=== PATIENT | female | born 1965 | race Caucasian/White ===

== ENCOUNTER → 2020-06-26 13:11 | Outpatient (CLI) | payer OTHER, SELFPAY ==
--- NOTE | ~2020-06-26 | XR_ITS ---
EXAMINATION: XR ankle RT 2V EXAM DATE: 06/26/2020 14:18 INDICATION: No known recent injury provided at this time. Pain of the right ankle. TECHNIQUE: Frontal and lateral projections of the right ankle. There is no prior study for comparis on. FINDINGS: The ankle mortise appears intact. Right calcaneus has tiny posterior and inferior spurs. N o evidence of talar osteochondral defect. There are no acute fractures or dislocations identified. T here is no subcutaneous gas. The soft tissue is unremarkable. There are no radiopaque foreign bodi es. IMPRESSION: Tiny right calcaneal spurs. Reviewed, dictated and finalized at location A. IMPRESSION: Tiny right calcaneal spurs.
--- NOTE | ~2020-06-26 | XR_ITS ---
EXAMINATION: XR foot RT 2V EXAM DATE: 06/26/2020 14:18 INDICATION: No known recent injury provided at this time. Pain of the left foot. TECHNIQUE: Frontal and lateral projections of the right foot. There is no prior study for compariso n. FINDINGS: There is mild right 1st metatarsophalangeal joint primary osteoarthritis. Small inferior an d posterior calcaneal spurs. There are no acute fractures or dislocations identified. There is no clifford bcutaneous gas. The soft tissue is unremarkable. There are no radiopaque foreign bodies. IMPRESSION: 1. 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 2. Small calcaneal spurs. Reviewed, dictated and finalized at location A.
--- NOTE | ~2020-06-26 | XR_ITS ---
EXAMINATION: XR wrist RT 2V EXAM DATE: 06/26/2020 14:18 INDICATION: No known recent injury provided at this time. Pain of the right wrist. Polyarthralgia. TECHNIQUE: Frontal and lateral projections of the right wrist. There is no prior study for comparis on. FINDINGS: There are no bony erosions identified. The joint spaces are uniform. There are no acute fr actures or dislocations identified. There is no subcutaneous gas. The soft tissue is unremarkable. There are no radiopaque foreign bodies. IMPRESSION: 1. Unremarkable XR wrist RT 2V exam. Reviewed, dictated and finalized at location A.
--- NOTE | ~2020-06-26 | XR_ITS ---
EXAMINATION: XR foot LT 2V EXAM DATE: 06/26/2020 14:18 INDICATION: No known recent injury provided at this time. Pain of the left foot. TECHNIQUE: Frontal and lateral projections of the left foot. There is no prior study for comparison . FINDINGS: Left calcaneal small spurs posteriorly and inferiorly. There are no acute fractures or dis locations identified. There is no subcutaneous gas. The soft tissue is unremarkable. There are no radiopaque foreign bodies. There are no bony erosions identified. IMPRESSION: Small left calcaneal spurs. Reviewed, dictated and finalized at location A. IMPRESSION: Small left calcaneal spurs.
--- NOTE | ~2020-06-26 | XR_ITS ---
EXAMINATION: XR hand LT 2V EXAM DATE: 06/26/2020 14:18 INDICATION: No known recent injury provided at this time. Pain of the left hand. TECHNIQUE: Frontal and lateral projections of the left hand. There is no prior study for comparison . FINDINGS: The joint spaces are uniform. There are no bony erosions identified. There are no acute fractures or dislocations identified. There is no subcutaneous gas. The soft tissue is unremarkabl e. There are no radiopaque foreign bodies. IMPRESSION: 1. Unremarkable XR hand LT 2V exam. Reviewed, dictated and finalized at location A.
--- NOTE | ~2020-06-26 | XR_ITS ---
EXAMINATION: XR wrist LT 2V EXAM DATE: 06/26/2020 14:18 INDICATION: No known recent injury provided at this time. Pain of the left wrist. TECHNIQUE: Frontal and lateral projections of the left wrist. There are no prior studies for compar yair. FINDINGS: The joint spaces are uniform. There are no bony erosions identified. There are no acute fr actures or dislocations identified. There is no subcutaneous gas. The soft tissue is unremarkable. There are no radiopaque foreign bodies. IMPRESSION: 1. Unremarkable XR wrist LT 2V exam. Reviewed, dictated and finalized at location A.
--- NOTE | ~2020-06-26 | XR_ITS ---
EXAMINATION: XR hand RT 2V EXAM DATE: 06/26/2020 14:18 INDICATION: No known recent injury provided at this time. Pain of the right hand. Polyarthralgia. TECHNIQUE: Right hand frontal, lateral and oblique projections obtained and reviewed. Comparison is m heather to prior examination from 02/25/2010. FINDINGS: Right metacarpal bones are unremarkable. The joint spaces are uniform. There are no bony erosions identified. There are no acute fractures or dislocations identified. There is no subcutaneo us gas. The soft tissue is unremarkable. There are no radiopaque foreign bodies. IMPRESSION: 1. Unremarkable XR hand RT 2V exam. Reviewed, dictated and finalized at location A.
--- NOTE | ~2020-06-26 | XR_ITS ---
EXAMINATION: XR ankle LT 2V EXAM DATE: 06/26/2020 14:18 INDICATION: No known recent injury provided at this time. Pain of the left ankle. TECHNIQUE: Frontal and lateral projections of the left ankle. There is no prior study for compariso n. FINDINGS: There are tiny left calcaneal inferior and posterior spurs. The ankle mortise appears inta ct. There are no acute fractures or dislocations identified. There is no subcutaneous gas. The soft tissue is unremarkable. There are no radiopaque foreign bodies. No evidence of talar osteochondra l defect. IMPRESSION: Tiny left calcaneal spurs. Reviewed, dictated and finalized at location A. IMPRESSION: Tiny left calcaneal spurs.
== END ==
PROVIDERS: Visit Provider Internal Medicine Rheumatology
DX: M79.10 Myalgia, unspecified site (principal); R53.81 Other malaise; R53.83 Other fatigue; M77.32 Calcaneal spur, left foot; M77.31 Calcaneal spur, right foot; M19.071 Primary osteoarthritis, right ankle and foot
CPT/HCPCS: 73100; 73120; 73600; 73620

== ENCOUNTER → 2021-09-13 15:46 | Outpatient (CLI) | payer OTHER, SELFPAY ==
--- NOTE | ~2021-09-13 | MR_ITS ---
EXAMINATION: MR brain/brain stem wo con DATE: 09/13/2021 16:19 INDICATION: Personal history of transient ischemic attack. Migraine headache. TECHNIQUE: Magnetic resonance imaging (MRI) of the brain and brainstem was performed without intraven ous contrast. Sequences included sagittal and axial T1-weighted FSE, axial diffusion-weighted FS EPI, axial T2*-weighted GRE, axial T2-weighted FLAIR Propeller, and axial T2-weighted Propeller. Apparent diffusion coefficient (ADC) maps were created. COMPARISON: Brain MRI 01/22/2018 FINDINGS: There are scattered areas of nonspecific increased T2-weighted signal intensity in the cere bral white matter. There is no intracranial hemorrhage, acute infarction, or abnormal intracranial ma ss lesion. The ventricles are normal in size. The orbits are normal. There is mild mucosal thickening in the paranasal sinuses. The mastoid air cells are normal. IMPRESSION: 1. Stable mild nonspecific cerebral white matter disease, which likely represents chronic small vesse l ischemic disease. Reviewed, dictated and finalized at location A. KE COUNSELOR IMPRESSION: 1. Stable mild nonspecific cerebral white matter disease, which likely represen ts chronic small vessel ischemic disease.
== END ==
PROVIDERS: PCP Family Medicine; Visit Provider Family Medicine
DX: Z86.73 Personal history of transient ischemic attack (TIA), and cerebral infarction without residual deficits (principal); R93.0 Abnormal findings on diagnostic imaging of skull and head, not elsewhere classified
CPT/HCPCS: 70551

== ENCOUNTER 2022-03-05 09:08 | Emergency (ER) | payer OTHER, SELFPAY ==
[2022-03-05] VITALS (17 sets, daily range): BP systolic 135–181; BP diastolic 61–101; PULSE 74–103; RESP 10–22; TEMP 36.2; O2SAT 87–100
--- NOTE | ~2022-03-05 | XR_ITS ---
EXAMINATION: XR chest 2V DATE: 03/05/2022 11:15 INDICATION: This of breath and cough TECHNIQUE: PA and lateral views of the chest were obtained. COMPARISON: Chest radiograph dated 01/21/18 FINDINGS: The lungs remain clear with no focal airspace opacities, pulmonary edema, pleural effusion or pneumot horax. The cardiomediastinal silhouette is normal. Mild to moderate thoracic spondylosis. IMPRESSION: 1. No acute cardiopulmonary disease. Reviewed, dictated and finalized at location A.
--- NOTE | 2022-03-05 09:20 | ED.GENADULT ---
HPI - General Adult General Chief complaint: Asthma Stated complaint: Asthma Attack Time Seen by Provider: 03/05/22 09:14 Source: patient Mode of arrival: ambulatory Limitations: no limitations History of Present Illness HPI narrative: 56-year-old female presenting the emergency department for evaluation of worsening shortness of breath since Monday or Monday. Patient does have an underlying history of asthma. Patient states she has been using her albuterol nebulizers without significant improvement. Patient does report shortness of breath but denies any associated chest pain. Patient denies any fevers nausea vomiting or diarrhea. Patient states she did do a home test for COVID a few days ago and it was negative. Patient states she is not currently vaccinated. Patient states she is not a smoker. Related Data Allergies Allergy/AdvReac Type Severity Reaction Status Date / Time sumatriptan Allergy Severe ANAPHYLAXIS, Verified 03/05/22 12:27 Asthma ciprofloxacin Allergy Unknown Other Verified 11/30/21 10:52 levofloxacin Allergy Unknown Unknown Verified 11/30/21 10:52 loratadine Allergy Unknown drowsiness Verified 11/30/21 10:52 Penicillins Allergy Unknown Rash Verified 11/30/21 10:52 Sulfa (Sulfonamide Allergy Unknown Rash Verified 11/30/21 10:52 Antibiotics) Review of Systems Review of Systems: CONSTITUTIONAL: Denies fever, chills, or sweats. EYES: Denies visual changes, redness, or discharge. ENT: Denies rhinorrhea, congestion, sore throat, or otalgia. CARDIOVASCULAR: Denies chest pain, palpitations, or edema. RESPIRATORY: See HPI GASTROINTESTINAL: Denies abdominal pain, nausea, vomiting, or diarrhea. GENITOURINARY: Denies dysuria or hematuria. SKIN: Denies rash or itching. MUSCULOSKELETAL: Denies back pain, joint pain, or myalgia. NEUROLOGIC: Denies headache, numbness, or weakness. [facility] Past Medical History Medical History Chronic fatigue, unspecified Family history of breast cancer Senile lentigo Surgical History Surgical History History of tonsillectomy Hx of LASIK Family History Family History Other Cerebrovascular accident Family history of allergic disorder Family history of cardiovascular disease Family history of malignant neoplasm of breast Family history of pulmonary embolism Hypertension Social History Social History (Updated 11/30/21 @ 10:59 by Rosa Munoz [facility]) Second hand tobacco smoke exposure: No Alcohol intake: current Exam Narrative: APPEARANCE: Well appearing, no pain, no distress, well-nourished. HEAD: normocephalic, atraumatic. EYES: PERRLA/EOMI, conjunctivae clear. NOSE: Normal no drainage EARS:TMS clear with good light reflex. RESPIRATORY: Airway patent. Respiratory wheeze CARDIOVASCULAR: Regular rate and rhythm without murmurs rubs or gallops. ABDOMINAL: Soft, nontender, nondistended, normal bowel sounds MUSCULOSKELETAL: Moves all extremities. Strength/ROM intact, No edema, No calf tenderness. NEURO: Alert. Cranial nerves II through XII intact. Grossly intact SKIN: Warm, dry. Normal Color Course Course Emergency Course: Patient did feel improved with treatment. Patient was after the results of her work-up. X-ray showed no acute cardiopulmonary normality. Vital Signs Vital signs: Vital Signs Temperature 97.2 F L 03/05/22 09:14 Pulse Rate 103 H 03/05/22 09:14 Respiratory Rate 22 H 03/05/22 09:14 Blood Pressure 181/101 H 03/05/22 09:14 Pulse Oximetry 98 03/05/22 09:14 Oxygen Delivery Room Air 03/05/22 09:14 Temperature 97.2 F L 03/05/22 09:14 Pulse Rate 89 03/05/22 12:34 Respiratory Rate 13 03/05/22 12:34 Blood Pressure 151/64 H 03/05/22 11:47 Pulse Oximetry 94 03/05/22 12:00 Oxygen Delivery Room Air 03/05/22 09:14 Medical Decision Making V
[2022-03-05] MEDS: methylPREDNISolone SOD SUCC 125 MG VIAL IV PUSH (09:25)
[2022-03-05] MEDS: ALBUTEROL SULFATE NEB 2.5 MG/3 ML INH 5 MG INHALATION ×2 (09:30→12:26)
[2022-03-05 09:37] LABS: Basophils Absolute Auto 0.1 K/mm3 (0.0-0.1); Basophils Percent Auto 0.8 % (0.2-1.2); Eosinophils Absolute Auto 0.6 K/mm3 (0-0.3); Eosinophils Percent Auto 9.7 % (0-4.4); Hematocrit 42.7 % (37.0-47.0); Hemoglobin 14.4 g/dL (12.0-15.0); Immature Granulocyte Absolute 0.01 K/mm3 (0.00-0.031); Immature Granulocyte Percent A 0.2 % (0-0.5); Lymphocytes Absolute Auto 2.58 K/mm3 (0.9-3.2); Lymphocytes Percent Auto 42.3 % (18.3-44.2); Mean Corpuscular HGB Conc 33.7 g/dl (32-36); Mean Corpuscular Hemoglobin 30.4 pg (26-34); Mean Corpuscular Volume 90.1 fl (80-100); Mean Platelet Volume 11.2 fl (7.4-10.4); Monocytes Absolute Auto 0.4 K/mm3 (0.1-0.6); Monocytes Percent Auto 6.4 % (2.6-8.5); Neutrophils Absolute Auto 2.5 K/mm3 (1.3-6.7); Neutrophils Percent Auto 40.6 % (45.5-73.1); Platelet Count Result 342 k/mm3 (150-375); Red Blood Count 4.74 M/mm3 (4.2-5.4); Red Cell Distribution Width 13.3 % (11.5-14.5); White Blood Count 6.1 K/mm3 (4.5-10.0)
[2022-03-05 09:54] LABS: Alanine Aminotransferase 24 U/L (6-35); Albumin Level 4.4 g/dL (3.5-5.1); Alkaline Phosphatase 83 U/L (38-126); Anion Gap 11 mmol/L (8-16); Aspartate Amino Transferase 39 U/L (14-36); Bilirubin,Total 0.5 mg/dL (0.2-1.3); Blood Urea Nitrogen 12 mg/dL (7-17); Calcium 8.8 mg/dL (8.4-10.2); Carbon Dioxide 22 mmol/L (22-30); Chloride 108 mmol/L (98-107); Estimated CRCL calculation 104 ml/min; Estimated Glomerular Filt Rate > 60; Glucose 102 mg/dL (65-110); Potassium 4.3 mmol/L (3.4-5.0); Sodium 141 mmol/L (137-145)
[2022-03-05 10:38] LABS: SARS-CoV-2 RNA PCR Negative
== END 2022-03-05 12:54 | disposition home or self-care (01) ==
PROVIDERS: Emergency Provider Emergency Medicine; PCP Family Medicine
DX: J45.909 Unspecified asthma, uncomplicated (principal); Z20.822 Contact with and (suspected) exposure to COVID-19; R53.82 Chronic fatigue, unspecified; L81.4 Other melanin hyperpigmentation; Z28.310 Unvaccinated for COVID-19
CPT/HCPCS: 36415; 71046; 80053; 85025; 94640; 96374; 99284; C9803; J2930; U0003; U0005

== ENCOUNTER 2023-11-08 11:35 | Outpatient (CLI) | payer OTHER, SELFPAY ==
[2023-11-08 14:03] LABS: Basophils Percent Auto 0.8 % (0.2-1.2); Eosinophils Absolute Auto 0.4 K/mm3 (0-0.3); Eosinophils Percent Auto 7.5 % (0-4.4); Hematocrit 43.8 % (37.0-47.0); Hemoglobin 14.4 g/dL (12.0-15.0); Immature Granulocyte Absolute 0.01 K/mm3 (0.00-0.031); Immature Granulocyte Percent A 0.2 % (0-0.5); Lymphocytes Absolute Auto 2.15 K/mm3 (0.9-3.2); Lymphocytes Percent Auto 42.6 % (18.3-44.2); Mean Corpuscular HGB Conc 32.9 g/dl (32-36); Mean Corpuscular Hemoglobin 30.4 pg (26-34); Mean Corpuscular Volume 92.4 fl (80-100); Mean Platelet Volume 11.2 fl (7.4-10.4); Monocytes Absolute Auto 0.4 K/mm3 (0.1-0.6); Monocytes Percent Auto 8.1 % (2.6-8.5); Neutrophils Absolute Auto 2.1 K/mm3 (1.3-6.7); Neutrophils Percent Auto 40.8 % (45.5-73.1); Platelet Count Result 299 k/mm3 (150-375); Red Blood Count 4.74 M/mm3 (4.2-5.4); Red Cell Distribution Width 12.4 % (11.5-14.5); White Blood Count 5.1 K/mm3 (4.5-10.0)
[2023-11-08 15:13] LABS: Vitamin D 25 Hydroxy 51.7 ng/mL
[2023-11-08 15:16] LABS: Alanine Aminotransferase 30 U/L (6-35); Albumin Level 4.1 g/dL (3.5-5.1); Alkaline Phosphatase 98 U/L (38-126); Anion Gap 6 mmol/L (8-16); Aspartate Amino Transferase 64 U/L (14-36); Bilirubin,Total 0.7 mg/dL (0.2-1.3); Blood Urea Nitrogen 15 mg/dL (7-17); Calcium 9.1 mg/dL (8.4-10.2); Carbon Dioxide 28 mmol/L (22-30); Chloride 105 mmol/L (98-107); Cholesterol 185 mg/dL (0-200); Estimated Glomerular Filt Rate > 60; Glucose 99 mg/dL (65-110); HDL Direct 47 mg/dL; Potassium 4.3 mmol/L (3.4-5.0); Sodium 139 mmol/L (137-145); Triglycerides 125 mg/dL (<150)
[2023-11-08 15:27] LABS: LDL Cholesterol Direct 113 mg/dL
== END 2023-11-08 11:36 | disposition home or self-care (01) ==
LOC: ANHGOSHLAB 11:36
PROVIDERS: PCP Family Medicine; Visit Provider Family Medicine
DX: G47.10 Hypersomnia, unspecified (principal); E78.2 Mixed hyperlipidemia; E55.9 Vitamin D deficiency, unspecified
CPT/HCPCS: 36415; 80053; 80061; 82306; 82607; 82728; 84443; 85025

== ENCOUNTER 2023-11-10 15:01 | Outpatient (CLI) | payer OTHER, SELFPAY ==
[2023-11-11 14:33] LABS: Kit Draw Collected
== END 2023-11-10 15:02 | disposition home or self-care (01) ==
LOC: ANHGOSHLAB 15:04
PROVIDERS: PCP Family Medicine; Visit Provider Family Medicine
DX: R74.8 Abnormal levels of other serum enzymes (principal)
CPT/HCPCS: 36415

== ENCOUNTER 2024-01-15 08:40 | Outpatient (CLI) | payer OTHER, SELFPAY ==
[2024-01-23 15:30] VITALS: BMI 33.2
--- NOTE | 2024-01-23 15:30 | WPDSLEEPSTUD ---
Sleep Study Date of Study: 01/15/24 Ordering Provider: Rere Davila DO Interpreting Physician: Rere Davila DO Sleep Study Type: Split Polysomnogram Height: 1.68 m Weight: 93.44 kg Body Mass Index: 33.2 Neck Circumference (inches): 16 [place]: 17 Reason for Sleep Study Excessive daytime sleepiness Sleep History The patient is a 58-year-old female with hypertension and asthma that had a sleep study ordered for evaluation of sleep apnea. The patient occasionally awakens from sleep short of breath. She denies awakening at night with heartburn, belching or cough. She frequently snores but it is never loud enough that others complain. She denies having trouble sleeping when she has a cold. She occasionally wakes up gasping for air throughout the night. She occasionally has breathing problems at night observed by herself or others. She denies sweating excessively at night. She occasionally has heart palpitations or irregular heartbeats during the night. She frequently falls asleep during the day but never while driving. She denies sleep paralysis and cataplexy. She constantly has trouble at school or work due to sleepiness. She frequently experiences vivid dreamlike scenes upon awakening or falling asleep. He denies feeling afraid of going to sleep. She denies having nightmares. She frequently remembers her dreams. She denies having thoughts racing through her mind. She denies feeling sad, depressed and anxious. She frequently has muscular tension. She occasionally notices parts of her body jerk. She denies kicking during the night. She denies having crawling and aching feelings in her legs but frequently has leg pain during the night. She denies grinding her teeth during sleep and denies awakening with morning jaw pain. She is occasionally bothered by pain during the day but never awakened by pain during the night. She frequently wakes up feeling stiff in the morning. She denies waking up with sore or achy muscles. She rarely wakes up with pain in the neck, spine and other joints. She goes to bed at 12:30 a.m. on both weekdays and weekends. She is able to fall asleep relatively quickly. She wakes up twice throughout the night for unknown reasons and the amount of time it takes for her to fall back asleep is variable. She wakes up between 6-7 a.m. on both weekdays and weekends. She typically gets 6 hours of sleep per night. She will stay in bed for 92 120 minutes after waking up in the morning. She currently lives with her . She denies consuming any caffeinated beverages within 2 hours of bedtime. She denies engaging in physical exercise before bedtime. She will read before falling asleep. She denies taking naps in the afternoon or the evening. She consumes 4-5 cokes per week. She will rarely consume alcoholic beverages. She denies tobacco and recreational drug use. [facility] Past Medical History Medical History Atypical chest pain Chronic fatigue, unspecified COVID-19 10.23.20 Family history of breast cancer Senile lentigo Surgical History Surgical History History of tonsillectomy Hx of LASIK Family History Family History Other Cerebrovascular accident Family history of allergic disorder Family history of cardiovascular disease Family history of malignant neoplasm of breast Family history of pulmonary embolism Hypertension Social History Social History Smoking status: Never smoker Second hand tobacco smoke exposure: No Alcohol intake: current Alcohol use details: social Substance use: never Substance use type: does not use Do You Feel Safe in your Home?: Yes Lack of Transportation: No Lack of Food: Never True Current Housing: [place]
== END 2024-01-16 07:14 | disposition home or self-care (01) ==
LOC: ANHCSM 08:41
PROVIDERS: PCP Family Medicine; Visit Provider Family Medicine
DX: G47.19 Other hypersomnia (principal); G47.33 Obstructive sleep apnea (adult) (pediatric)
CPT/HCPCS: 95811

== ENCOUNTER 2024-10-02 10:23 | Emergency (ER) | payer OTHER, SELFPAY ==
--- NOTE | ~2024-10-02 | XR_ITS ---
XR chest 2V Ordering provider: Guy Peralta MD History: 58 years Female with . sob, COUGH HX ASTHMA . Comparison: None. FINDINGS: MEDIASTINUM: The cardiac silhouette is not enlarged. LUNGS: No infiltrates, effusions or pneumothorax. Emphysematous changes of the lungs. OTHER: No free air under the diaphragm. Degenerative changes of the spine with multilevel degenerative disc disease. Mild kyphosis. IMPRESSION: No acute cardiopulmonary pathology. Reviewed, dictated and finalized at location A. RAIT ARTIST
[2024-10-02 10:30] VITALS: BP 155/82; PULSE 89; RESP 18; TEMP 37; O2SAT 100
--- NOTE | 2024-10-02 11:25 | ECG_ITS ---
Test Date: 2024-10-02 11:31:26 Measurements Intervals [place] Rate: 77 P: 35 [place]: 158 QRS: 33 QRSD: 77 T: 31 QT: 329 QTc: 373 Interpretive Statements SINUS RHYTHM No previous ECG available for comparison Electronically Signed On 10-02-2024 14:45:28 [employer] by Nereida Mcintosh M.D.
[2024-10-02 11:50] LABS: Basophils Absolute Auto 0.1 K/mm3 (0.0-0.1); Basophils Percent Auto 0.4 % (0.2-1.2); Eosinophils Absolute Auto 0.1 K/mm3 (0-0.3); Eosinophils Percent Auto 1.2 % (0-4.4); Hematocrit 40.4 % (37.0-47.0); Hemoglobin 13.8 g/dL (12.0-15.0); Immature Granulocyte Absolute 0.06 K/mm3 (0.00-0.031); Immature Granulocyte Percent A 0.5 % (0-0.5); Lymphocytes Absolute Auto 4.09 K/mm3 (0.9-3.2); Lymphocytes Percent Auto 36.4 % (18.3-44.2); Mean Corpuscular HGB Conc 34.2 g/dl (32-36); Mean Corpuscular Volume 90.8 fl (80-100); Mean Platelet Volume 10.6 fl (7.4-10.4); Monocytes Absolute Auto 0.9 K/mm3 (0.1-0.6); Monocytes Percent Auto 7.7 % (2.6-8.5); Neutrophils Percent Auto 53.8 % (45.5-73.1); Platelet Count Result 312 k/mm3 (150-375); Red Blood Count 4.45 M/mm3 (4.2-5.4); Red Cell Distribution Width 12.5 % (11.5-14.5); White Blood Count 11.2 K/mm3 (4.5-10.0)
[2024-10-02 12:05] LABS: Alanine Aminotransferase 24 U/L (6-35); Albumin Level 3.9 g/dL (3.5-5.1); Alkaline Phosphatase 77 U/L (38-126); Anion Gap 5 mmol/L (4-12); Aspartate Amino Transferase 22 U/L (14-36); Bilirubin,Total 0.5 mg/dL (0.2-1.3); Blood Urea Nitrogen 19 mg/dL (7-17); Calcium 9.2 mg/dL (8.4-10.2); Carbon Dioxide 28 mmol/L (22-30); Chloride 105 mmol/L (98-107); Estimated CRCL calculation 101 ml/min; Estimated Glomerular Filt Rate > 60; Glucose 105 mg/dL (65-110); Potassium 3.1 mmol/L (3.4-5.0); Sodium 138 mmol/L (137-145)
[2024-10-02 12:06] LABS: Prothrombin Time 13.6 Seconds (11.1-14.7)
[2024-10-02 12:31] LABS: NT Pro B Type Natriuretic Pept 100 pg/mL (19.9-100)
--- NOTE | 2024-10-02 12:38 | ED_ITS ---
HPI - Asthma General Chief Complaint: Asthma Stated Complaint: trouble with my asthma Time Seen by Provider: 10/02/24 10:57 Source: patient Mode of arrival: ambulatory Limitations: no limitations History of Present Illness HPI Narrative: 58-year-old with a history of asthma, hypertension here with a complaint of having shortness of breath on and off for past few weeks. Patient states that she has been using inhalers more frequently than normal. She also states that she was on a short course of prednisone for few days. She denies any fever or chills. complaint: shortness of breath Onset (ago): week(s) (4) Severity: moderate Context: none known Associated symptoms: none Treatments Prior to Arrival: inhaled bronchodilator Related Data Current Asthma Therapy: inhaled bronchodilator Allergies Allergy/AdvReac Type Severity Reaction Status Date / Time sumatriptan Allergy Severe ANAPHYLAXIS, Verified 04/10/24 13:25 Asthma ciprofloxacin Allergy Unknown Other Verified 04/10/24 13:25 levofloxacin Allergy Unknown Unknown Verified 04/10/24 13:25 Penicillins Allergy Unknown Rash Verified 04/10/24 13:25 Sulfa (Sulfonamide Allergy Unknown Rash Verified 04/10/24 13:25 Antibiotics) Review of Systems 2 Review of Systems: All systems reviewed & are unremarkable except as noted in HPI and below Constitutional: Constitutional: Reports no additional constitutional complaints Eyes: Eyes: Reports no additional eye complaints ENT: Reports system reviewed and no additional complaints, except as documented Cardiovascular: Cardiovascular: Reports no additional cardiovascular complaints Respiratory: Respiratory: Reports as per HPI Gastrointestinal: Gastrointestinal: Reports no additional gastrointestinal complaints Musculoskeletal: Musculoskeletal: Reports no additional musculoskeletal complaints Neurologic: Reports system reviewed and no additional complaints, except as documented Psychiatric: Psychiatric: Reports no additional psychiatric complaints Endocrine: Endocrine: Reports no additional endocrine complaints [facility] Past Medical History Medical History Atypical chest pain COVID-19 10.23.20 Chronic fatigue, unspecified Family history of breast cancer Senile lentigo Surgical History Surgical History Hx of LASIK History of tonsillectomy Family History Family History Other Cerebrovascular accident Family history of allergic disorder Family history of cardiovascular disease Family history of malignant neoplasm of breast Family history of pulmonary embolism Hypertension Social History Social History Smoking status: Never smoker Second hand tobacco smoke exposure: No Alcohol intake: current Alcohol use details: social Substance use: never Substance use type: does not use Do You Feel Safe in your Home?: Yes Lack of Transportation: No Lack of Food: Never True Current Housing: I Have Housing Concerned About Future Housing: No Difficulty Paying Gas/Electric Bills: No Difficulty Paying for Meds: No Currently Unemployed: No Education: Associate Degree Difficulty w/ Childcare or Family Care: No Exam 2 Narrative: GENERAL: Well-appearing, well-nourished, and in no acute distress. HEAD: Normocephalic, atraumatic. EYES: PERRLA and EOMI. ENT: Nares clear, no rhinorrhea or epistaxis. Mucous membranes moist. NECK: Supple. CHEST: Clear to auscultation. No respiratory distress. HEART: Regular rate and rhythm. No murmur heard. Normal peripheral pulses. ABDOMEN: Soft, nontender, nondistended, normal active bowel sounds. EXTREMITIES: Normal range of motion. No edema. SKIN: Warm, dry, no rash. NEURO: No focal deficits. Alert and oriented x3. PSYCH: Normal mood and affect. Course Course Emergency Course: Notified patient about her lab work, EKG chest x-ray findings cause of her shortness of breath most likely is asthma who advised her to continue with the inhalers will start prednisone. Recommended her to follow with Dr. Laird. Vital Signs Vital signs: Vital Signs Temperature 37.0 C 10/02/24 10:30 Pulse Rate 89 10/02/24 10:30 Respiratory Rate 18 10/02/24 10:30 Blood Pressure 155/82 H 10/02/24 10:30 Pulse Oximetry 100 10/02/24 10:30 Oxygen Delivery Room Air 10/02/24 10:30 Temperature 37.0 C 10/02/24 10:30 Pulse Rate 89 10/02/24 10:30 Respiratory Rate 18 10/02/24 10:30 Blood Pressure 155/82 H 10/02/24 10:30 Pulse Oximetry 100 10/02/24 10:30 Oxygen Delivery Room Air 10/02/24 10:30 MDM - Asthma Differential Diagnosis Differential diagnosis: Likely Acute exacerbation, Pneumonia and Pulmonary edema systolic Medical Records Attestation: I reviewed the patient's medical records. Lab Data Attestation: I reviewed the patient's lab results. 10/02/24 11:40 10/02/24 11:40 Labs: Lab Results 10/02/24 10/02/24 10/02/24 Range/Units 11:40 11:40 11:40 WBC 11.2 H (4.5-10.0) K/mm3 RBC 4.45 (4.2-5.4) M/mm3 Hgb 13.8 (12.0-15.0) g/dL Hct 40.4 (37.0-47.0) % MCV 90.8 (80-100) fl MCH 31.0 (26-34) pg MCHC 34.2 (32-36) g/dl RDW 12.5 (11.5-14.5) % Plt Count 312 (150-375) k/mm3 MPV 10.6 H (7.4-10.4) fl Immature Gran % (Auto) 0.5 (0-0.5) % Neut % (Auto) 53.8 (45.5-73.1) % Lymph % (Auto) 36.4 (18.3-44.2) % [place] % (Auto) 7.7 (2.6-8.5) % Eos % (Auto) 1.2 (0-4.4) % Baso % (Auto) 0.4 (0.2-1.2) % Lymph # (Auto) 4.09 H (0.9-3.2) K/mm3 [place] # (Auto) 0.9 H (0.1-0.6) K/mm3 Eos # (Auto) 0.1 (0-0.3) K/mm3 Baso # (Auto) 0.1 (0.0-0.1) K/mm3 Abs Immat Gran (auto) 0.06 H (0.00-0.031) K/mm3 Absolute Neuts (auto) 6.0 (1.3-6.7) K/mm3 Absolute Nucleated RBC 0.000 (0.0-0.012) K/mm3 Nucleated RBC % 0.0 (0.0-0.2) % PT 13.6 Cancelled (11.1-14.7) Seconds INR 1.0 Cancelled D-Dimer 0.50 H (<0.48) ug/mL Sodium 138 (137-145) mmol/L Potassium 3.1 L (3.4-5.0) mmol/L Chloride 105 (98-107) mmol/L Carbon Dioxide 28 (22-30) mmol/L Anion Gap 5 (4-12) mmol/L BUN 19 H (7-17) mg/dL Creatinine 0.60 L (0.7-1.0) mg/dL Estim Creat Clear Calc 101 ml/min Estimated GFR > 60 (59 - ) Glucose 105 (65-110) mg/dL Calcium 9.2 (8.4-10.2) mg/dL Total Bilirubin 0.5 (0.2-1.3) mg/dL AST 22 (14-36) U/L ALT 24 (6-35) U/L Alkaline Phosphatase 77 (38-126) U/L NT-Pro-B Natriuret Pep 100 (19.9-100) pg/mL Total Protein 7.0 (6.3-8.2) g/dL Albumin 3.9 (3.5-5.1) g/dL Imaging Data Radiologist's impression: ITS Impressions Chest X-Ray 10/02/24 11:49 IMPRESSION: No acute cardiopulmonary pathology. ECG Data EKG #1: ECG completion date: 10/02/24 ECG completion time: 11:31 EKG Interpretation: normal rate (77), sinus rhythm, no ectopy, normal QRS and NL axis Discharge Plan Discharge Clinical Impression: Asthma Qualifiers: Asthma severity: moderate Asthma persistence: unspecified Asthma complication type: uncomplicated Qualified Code(s): J45.909 - Unspecified asthma, uncomplicated Patient Disposition: Home, Self-Care Condition: Stable Instructions: Asthma (ED) Additional Instructions: Continue home medication including inhalers. Use steroids as prescribed. Patient Language: Serbian Prescriptions: New prednisone 20 mg tablet 20 mg PO BID Qty: 14 0RF No Action benazepril 10 mg tablet 10 mg PO DAILY Qty: 90 3RF (DME) CPAP Equipment See Rx Instructions .Route .MEDSUPPLY Qty: 1 0RF Rx Instructions: Rx: Resmed AirSense 11 CPAP at 6 cm H2O, size small Resmed AirTouch F20 full face mask, CPAP filters/tubing and heated humidity DME: Patient/Insurance to choose naltrexone 50 mg tablet 4.5 mg PO .COMPLEX Qty: 45 0RF Rx Instructions: 4.5 mg orally ; patient will dilute.; prednisone 50 mg tablet 50 mg PO DAILY Qty: 5 0RF Follow-up/Referrals: Ruma Laird MD [Primary Care Provider] - Time of Disposition: 12:46
--- NOTE | 2024-10-02 12:57 | PC.NURSE ---
pt visibly upset about dx or lack thereof. pt left prior to dc VS as she would get herself out of here pt to follow up with Dr Laird
--- OUTSIDE RECORDS SUMMARY | 2024-10-11 21:07 | XMS_ITS | Clinical Summary ---
Author Organization [facility] [place] [address] Address [address] [place] [address] Care Team Providers Care Belting Inspector Name Role Phone Ruma Laird MD Primary Care Provider + Allergies Active Allergy Reactions Criticality Noted Date Comments Ciprofloxacin Other (See comments) Low 07/29/2021 Penicillins Unknown 01/05/2015 Sulfa (Sulfonamide Antibiotics) Swelling Medium 12/15 Sumatriptan Anaphylaxis High 09/03/2020 Medications albuterol 2.5 mg /3 mL (0.083 %) nebulizer solution USE 1 VIAL IN NEBULIZER EVERY 4 TO 6 HOURS NEEDED 2 Active albuterol HFA (PROVENTIL HFA,VENTOLIN HFA,PROAIR HFA) 90 mcg/actuation inhaler Inhale 2 puffs 2 Active armodafiniL (NUVIGIL) 50 mg tablet Take 50 mg by mouth daily 1 Active benazepriL (LOTENSIN) 10 mg tablet Take 10 mg by mouth daily Active Active Problems No known active problems Social History Tobacco Use Types Packs/Day Years Used Date Smoking Tobacco: Never Smokeless Tobacco: Never AUDIT-C Answer Date Recorded Q1: How often do you have a drink containing alc ohol? 2-4 times a month 11/28/2021 Average Number of Drinks Not on file 022 Frequency of Binge Drinking Not on file 11/16 Personal Safety Answer Date Recorded Getting School Help Needed Not on file 12/29 Comments Unknown Sex and Gender Information Value Date Recorded Sex Assigned at Not on file Legal Sex Female 8:15 PM ASP NET C DEVELOPER Gender Identity Not on file Sexual Orientation Not on file Obstetrics History Last Filed Vital Signs Vital Sign Reading Time Taken Comments Blood Pressure 132/85 11/28/2021 8:28 AM ASP NET C DEVELOPER Pulse 93 11/28/2021 8:28 AM ASP NET C DEVELOPER Temperature 36.4 ??C (97.5 ??F) 11/28/2021 8:28 AM CS T Respiratory Rate 14 11/28/2021 8:28 AM ASP NET C DEVELOPER Oxygen Saturation 99% 11/28/2021 8:28 AM ASP NET C DEVELOPER Inhaled Oxygen Concentration - - Weight 97.5 kg (215 lb) 11/28/2021 8:28 AM ASP NET C DEVELOPER Height 167.6 cm (5' 6 ) 11/28/2021 8:28 AM ASP NET C DEVELOPER Body Mass Index 34.7 11/28/2021 8:28 AM ASP NET C DEVELOPER Plan of Treatment Health Maintenance Due Date Last Done Comments Breast Cancer Screening-Mammogram 1964 Cervical Cancer Screening 1964 Colon Cancer Screening-Colonoscopy 1964 Depression Screening 1964 Hepatitis C Screening 1964 DTaP/Tdap/Td Vaccine (1 - Tdap) 1975 Hepatitis B Screening 1982 Regular Well Visit/Exam 18-64 1982 Zoster Vaccine (1 of 2) 2014 Influenza Vaccine (#1) 2024 Pneumococcal vaccine <65 Aged Out No longer eligible based on patient's age to complete this topic Insurance [facility] PPO Care Teams Belting Inspector Relationship Specialty Start Date End Date Ruma Laird MD PCP - General Family Medicine 09/28/17
--- OUTSIDE RECORDS SUMMARY | 2024-10-11 21:07 | XMS_ITS | Encounter Summary ---
Author Organization [facility] Medical [facility] Address [address] [place] [address] Care Team Providers Care Grain Oilseed Or Pasture Farm Worker Name Role Phone Ruma Laird MD Primary Care Provider + Reason for Visit * Cardiology (Routine) - Closed Specialty Diagnoses / Procedures Referred By Contac t Referred To Contact Diagnoses Chest pain, unspecified type Procedures Stress Treadmill Test Ruma Laird MD Phone: tel: fax: [facility] Referral ID Status Reason Start Date Expiration Date Visits Re quested Visits Authorized [id number] Closed 04/14/2021 05/14/2022 1 1 Encounter Details Date Type Department Care Team (Latest Contact Info) Description 04/22/2021 2:00 PM CDT Ancillary Procedure [facility] Cardiology [address] [place] [address] Chest pain, unspecified type Social History Tobacco Use Types Packs/Day Years Used Date Smoking Tobacco: Never Assessed Comments Unknown Sex and Gender Information Value Date Recorded Sex Assigned at Not on file Legal Sex Female 8:15 PM UNIT CONTROL WORKER Gender Identity Not on file Sexual Orientation Not on file documented as of this encounter Procedure Notes * Bebo Khan MD - 04/22/2021 12:00 AM CDT Ordering Physician Dr. Ruma Laird. Indication Chest pain, dyspnea on exertion. Brief Clinical History Patient is a 55-year-old female who has chest pain and dyspnea. Other risk factors include hypertension and family history of heart disease. Stress testing is performed for further evaluation. Resting Electrocardiogram Normal. Procedure After obtaining baseline 12-lead electrocardiogram and blood pressure assessment of 144/84 mmHg, patient exercised a total of 6 minutes 7 seconds on a standard Nelson protocol, achieving a peak heart rate of 149 beats per minute, which is 91% of maximum predicted heart rate for age. METs 7.0. Test was terminated due to back pain and inability to keep up on the treadmill. Normal blood pressure response with peak blood pressure of 180/72. No exercise-induced chest pain. There were no diagnostic STor T-wave abnormalities to indicate ischemia up to a level of 91% of maximum predicted heart rate for age. No arrhythmias. Conclusion 1. Normal regular exercise treadmill stress test without ischemic EKG changes up to a level of 91% of maximum predicted heart rate for age. 2. No exercise-induced chest pain or limiting dyspnea. 3. Slightly below average exercise capacity for age. Job ID/VF Job ID: [id number] documented in this encounter Plan of Treatment Pending Results Name Type Priority Associated Diagnoses Date /Time Stress Treadmill Test Cardiac Services Routine Chest pain, unspecified type 04/22/2021 2:33 PM CDT documented as of this encounter Visit Diagnoses Diagnosis Chest pain, unspecified type documented in this encounter Care Teams Grain Oilseed Or Pasture Farm Worker Relationship Specialty Start Date End Date Ruma Laird MD PCP - General Family Medicine 09/28/17 documented as of this encounter
--- OUTSIDE RECORDS SUMMARY | 2024-10-11 21:07 | XMS_ITS | Referral Summary ---
Author Organization [facility] [place] [place] [address] Address [address] [place] [address] Care Team Providers Care Packing Line Operator Name Role Phone Ruma Laird MD Primary [...] on file Legal Sex Female 8:15 PM SHANK SANDER Gender Identity Not on file Sexual Orientation Not on file Last Filed Vital Signs Vital Sign Reading Time Taken Comments Blood Pressure 132/85 11/28/2021 8:28 AM SHANK SANDER Pulse 93 11/28/2021 8:28 AM SHANK SANDER Temperature 36.4 ??C (97.5 ??F) 11/28/2021 8:28 AM CS T Respiratory Rate 14 11/28/2021 8:28 AM SHANK SANDER Oxygen Saturation 99% 11/28/2021 8:28 AM SHANK SANDER Inhaled Oxygen Concentration - - Weight 97.5 kg (215 lb) 11/28/2021 8:28 AM SHANK SANDER Height 167.6 cm (5' 6 ) 11/28/2021 8:28 AM SHANK SANDER Body Mass Index 34.7 11/28/2021 8:28 AM SHANK SANDER Plan of Treatment Not on file Insurance [facility] PPO [facility] HMO/PPO Address: [facility] [id number] [place] [id number] Care Teams Packing Line Operator Relationship Specialty Start Date End Date Ruma Laird MD PCP - General Family Medicine 09/28/17
--- OUTSIDE RECORDS SUMMARY | 2024-10-11 21:07 | XMS_ITS | Encounter Summary ---
Author Organization [facility] Address [address] [place] [address] Care Team Providers Care Ping Pong Table Assembler Name Role Phone Ruma Laird MD Primary Care Provider + Reason for Visit * Diagnostic Imaging (Routine) - Closed Specialty Diagnoses / Procedures Referred By Contac t Referred To Contact Diagnoses Asthma with acute exacerbation, unspecified asthma severity, unspecified whether persistent Procedures XR Chest Pa Lateral 2 Views Sam Seth NP [address] [place] [address] Phone: tel: fax: [facility] Referral ID Status Reason Start Date Expiration Date Visits Re quested Visits Authorized [id number] Closed 11/28/2021 12/28/2022 1 1 Encounter Details Date Type Department Care Team (Latest Contact Info) Description 11/28/2021 8:40 AM WILLOW MACHINE OPERATOR Ancillary Procedure [facility] Medical [facility] Imaging at [address] [id number] Asthma with acute exacerbation, unspecified asthma severity, unspecified whether persistent Social History Tobacco Use Types Packs/Day Years Used Date Smoking Tobacco: Never Smokeless Tobacco: Never AUDIT-C Answer Date Recorded Q1: How often do you have a drink containing alc ohol? 2-4 times a month 11/28/2021 Average Number of Drinks Not on file 022 Frequency of Binge Drinking Not on file 11/16 Comments Unknown Sex and Gender Information Value Date Recorded Sex Assigned at Not on file Legal Sex Female 8:15 PM WILLOW MACHINE OPERATOR Gender Identity Not on file Sexual Orientation Not on file documented as of this encounter Plan of Treatment Not on file documented as of this encounter Procedures Procedure Name Priority Date/Time Associated Diagnosis Comments XR CHEST PA LATERAL 2 VIEWS Schedule BRAXTON, Read BRAXTON (Appt Today, Awaiting Results) 11/28/2021 9:12 AM WILLOW MACHINE OPERATOR Asthma with acute exacerbation, unspecified asthma severity, unspecified whether persistent documented in this encounter Results * XR Chest Pa Lateral 2 Views (11/28/2021 9:12 AM WILLOW MACHINE OPERATOR) Anatomical Region Laterality Modality Body, Chest N/A Digital Radiogra phy 11/28/2021 10:1 6 AM WILLOW MACHINE OPERATOR Narrative 11/28/2021 10:17 AM WILLOW MACHINE OPERATOR EXAM DESCRIPTION: ?? XR CHEST PA LATERAL 2 VIEWS REASON FOR STUDY: ?? Shortness of breath for several weeks TECHNIQUE: ?? Frontal ??and lateral radiographic views of the chest acquired. COMPARISON: ?? None available FINDINGS: LUNGS/PLEURA: ?? No focal consolidation or pneumothorax. No pleural effusion. HEART/MEDIASTINUM: ?? Heart size is normal. Normal mediastinal and hilar contours. HARDWARE/LINES/TUBES: ?? None. BONES: ?? No acute findings. OTHER: ?? No other significant finding. IMPRESSION: ??No acute cardiopulmonary abnormality. THIS IS AN ELECTRONICALLY VERIFIED FINAL REPORT 11/28/2021 10:17 AM - Electronically signed by ??Alexi HENDERSON D: ??11/28/2021 10:17 AM T: Report ID: [id number] Reading Location: ??[id number] Procedure Note Alexi Carlos MD - 11/28/2021 EXAM DESCRIPTION: XR CHEST PA LATERAL 2 VIEWS REASON FOR STUDY: Shortness of breath for several weeks TECHNIQUE: Frontal and lateral radiographic views of the chestacquired. COMPARISON: None available FINDINGS: LUNGS/PLEURA: No focal consolidation or pneumothorax. No pleuraleffusion. HEART/MEDIASTINUM: Heart size is normal. Normal mediastinal and hilar contours. HARDWARE/LINES/TUBES: None. BONES: No acute findings. OTHER: No other significant finding. IMPRESSION: No acute cardiopulmonary abnormality. THIS IS AN ELECTRONICALLY VERIFIED FINAL REPORT 11/28/2021 10:17 AM - Electronically signed by Alexi HENDERSON T: Report ID: [id number] Reading Location: [id number] Sam Seth NP IMG XR PROCEDURES Final Result documented in this encounter Visit Diagnoses Diagnosis Asthma with acute exacerbation, unspecified asthma severity, unspecified whether persistent documented in this encounter Care Teams Ping Pong Table Assembler Relationship Specialty Start Date End Date Ruma Laird MD PCP - General Family Medicine 09/28/17 documented as of this encounter
--- OUTSIDE RECORDS SUMMARY | 2024-10-11 21:07 | XMS_ITS | Encounter Summary ---
Author Organization [facility] Address [address] [facility] [address] [place] [id number] Care Team Providers Care Neuropsychologist Name Role Phone Ruma Laird MD Primary Care Provider + Reason for Referral * Diagnostic Imaging (Routine) - Closed Specialty Diagnoses / Procedures Referred By Contac t Referred To Contact Diagnoses Asthma with acute exacerbation, unspecified asthma severity, unspecified whether persistent Procedures XR Chest Pa Lateral 2 Views Sam Seth NP [address] [facility] [address] [place] [address] Phone: tel: fax: [facility] Referral ID Status Reason Start Date Expiration Date Visits Re quested Visits Authorized [id number] Closed 11/28/2021 12/28/2022 1 1 ARTIST Reason for Visit * Reason Comments Asthma Trouble breathing si nce the end of October. Encounter Details Date Type Department Care Team (Late st Contact Info) Description 11/28/2021 8:30 AM FX ARTIST Office Visit [facility] [address] [phone] Sam Seth NP [address] [facility] [address] [place] [address] Asthma with acute exacerbation, unspecified asthma severity, unspecified whether persistent (Primary Dx) Social History Tobacco Use Types Packs/Day Years [...] on file Legal Sex Female 8:15 PM FX ARTIST Gender Identity Not on file Sexual Orientation Not on file documented as of this encounter Last Filed Vital Signs Vital Sign Reading Time Taken Comments Blood Pressure 132/85 11/28/2021 8:28 AM FX ARTIST Pulse 93 11/28/2021 8:28 AM FX ARTIST Temperature 36.4 ??C (97.5 ??F) 11/28/2021 8:28 AM CS T Respiratory Rate 14 11/28/2021 8:28 AM FX ARTIST Oxygen Saturation 99% 11/28/2021 8:28 AM FX ARTIST Inhaled Oxygen Concentration - - Weight 97.5 kg (215 lb) 11/28/2021 8:28 AM FX ARTIST Height 167.6 cm (5' 6 ) 11/28/2021 8:28 AM FX ARTIST Body Mass Index 34.7 11/28/2021 8:28 AM FX ARTIST documented in this encounter Patient Instructions * Patient Instructions* Sam Seth NP - 11/28/2021 8:30 AM FX ARTIST Images from the original note were not included. Patient Education Asthma PROCUREMENT SERVICES MANAGER: Asthma is a lung disease that makes breathing difficult. Chronic inflammation and reactions to triggers narrow the airways in your lungs. Asthma can become life-threatening if it is not managed. Cough-variant asthma is a type of asthma that causes a dry cough that keeps coming back. A dry cough may be your only symptom, or you may also have chest tightness. These symptoms may be caused by exercise or exposure to odors, allergens, or respiratory tract infections. Cough-variant asthma is treated the same way as typical asthma. Common symptoms include the following: ?? Coughing ?? Wheezing ?? Shortness of breath ?? Chest tightness Seek care immediately if: ?? You have severe shortness of breath. ?? Your lips or nails turn blue or morris. ?? The skin around your neck and ribs pulls in with each breath. ?? You have shortness of breath, even after you take your short-term medicine as directed. ?? Your peak flow numbers are in the red zone of your AAP. Contact your healthcare provider if: ?? You run out of medicine before your next refill is due. ?? Your symptoms get worse. ?? You need to take more medicine than usual to control your symptoms. ?? You have questions or concerns about your condition or care. Treatment for asthma will depend on how severe your asthma is. Medicine may decrease inflammation, open airways, and make it easier to breathe. Medicines may be inhaled, taken as a pill, or injected.Short-term medicines relieve your symptoms quickly. Long-term medicines are used to prevent future attacks. You may also need medicine to help control your allergies. Manage and prevent future asthma attacks: ?? Follow your asthma action plan. This is a written plan that you and your healthcare provider create. It explains which medicine you need and when to change doses if necessary. It also explains howyou can monitor symptoms and use a peak flow meter. The meter measures how well your lungs are working. ?? Manage other health conditions , such as allergies, acid reflux, and sleep apnea. ?? Identify and avoid triggers. These may include pets, dust mites, mold, and cockroaches. ?? Do not smoke or be around others who smoke. Nicotine and other chemicals in cigarettes and cigars can cause lung damage. Ask your healthcare provider for information if you currently smoke and need help to quit. E-cigarettes or smokeless tobacco still contain nicotine. Talk to your healthcare provider before you use these products. ?? Ask about the flu vaccine. The flu can make your asthma worse. You may need a yearly flu shot. Follow up with your healthcare provider as directed: You will need to return to make sure your medicine is working and your symptoms are controlled. You may be referred to an asthma or housing specialist. You may be asked to keep a record of your peak flow values and bring it with you to your appointments. Write down your questions so you remember to ask them during your visits. ?? 2017 [employer] Information is for End User's use only and may not be sold, redistributed or otherwise used for commercial purposes. All illustrations and images included in CareNotes?? are the copyrighted property of [employer] or [employer]. The above information is an educational manager only. It is not intended as medical advice for individual conditions or treatments. Talk to your doctor, nurse or pharmacist before following any medical regimen to see if it is safe and effective for you. ARTIST documented in this encounter Ordered Prescriptions Prescription Sig Dispense Quantity Refills Last Filled Start Date End Date predniSONE (DELTASONE) 20 mg tabletIndications: Asthma with acute exacerbation, unspecified asthma severity, unspecified whether persistent Take 2 tablets (40 mg) by mouth daily for 5 days 10 tablet 11/28/2021 2 documented in this encounter Progress Notes * Sam Seth NP - 11/28/2021 8:30 AM CST Images from the original note were not included. Subjective/Objective Patient ID: Dafne Schofield is a 56 y.o. female. Chief Complaint Asthma (Trouble breathing since the end of October. ) Asthma She complains of chest tightness, shortness of breath and wheezing. There is no cough, hemoptysis, hoarse voice or sputum production. Episode onset: approx. 2 weeks ago. Progression since onset: pt states she noticed some improvement after starting the prednisone, but symptoms returned right away, and she has been using albuterol daily since then. Pertinent negatives include no appetite change, chest pain, ear congestion, ear pain, fever, headaches, myalgias, nasal congestion, PND, postnasal drip, rhinorrhea, sneezing, sore throat or sweats. Her symptoms are aggravated by nothing. Her symptoms are alleviated by cold air (albuterol inhaler and nebulizer). She reports moderate improvement on t reatment. There are no known risk factors for lung disease. Her past medical history is significantfor asthma and pneumonia (pt states she had pneumonia several times as a child). There is no history of bronchiectasis, bronchitis, COPD or emphysema. 11/15/21 called PCP and they called out prednisone for 5 days. Since then been using albuterol whichdoes help but is having to use it everyday. Pt is concerned about pneumonia, states she use to get it a lot as a child, and it is not normal for her to have an asthma flair this long. Pt denies any recent upper or lower respiratory infection in the past 2-3 months. Review of Systems Constitutional: Negative for appetite change, chills, diaphoresis, fatigue and fever. HENT: Negative for congestion, ear discharge, ear pain, hoarse voice, postnasal drip, rhinorrhea, sinus pressure, sinus pain, sneezing and sore throat. Respiratory: Positive for shortness of breath and wheezing. Negative for cough, hemoptysis, sputum production and chest tightness. Cardiovascular: Negative for chest pain and PND. Gastrointestinal: Negative for abdominal pain, diarrhea, nausea and vomiting. Musculoskeletal: Negative for myalgias, neck pain and neck stiffness. Skin: Negative for rash. Neurological: Negative for dizziness and headaches. Hematological: Negative for adenopathy. Physical Exam Vitals and nursing note reviewed. Constitutional: General: She is awake. She is not in acute distress. Appearance: Normal appearance. HENT: Head: Normocephalic and atraumatic. Right Ear: Tympanic membrane and ear canal normal. Left Ear: Tympanic membrane and ear canal normal. Nose: No congestion or rhinorrhea. Right Sinus: No maxillary sinus tenderness or frontal sinus tenderness. Left Sinus: No maxillary sinus tenderness or frontal sinus tenderness. Mouth/Throat: Lips: Winger. Mouth: Mucous membranes are moist. Tongue: Tongue does not deviate from midline. Pharynx: Uvula midline. No pharyngeal swelling, oropharyngeal exudate, posterior oropharyngeal erythema or uvula swelling. Tonsils: No tonsillar exudate or tonsillar abscesses. Eyes: General: Lids are normal. Pupils: Pupils are equal, round, and reactive to light. Cardiovascular: Rate and Rhythm: Normal rate and regular rhythm. Pulses: Normal pulses. Heart sounds: Normal heart sounds. Pulmonary: Effort: Pulmonary effort is normal. No respiratory distress. Breath sounds: Examination of the right-upper field reveals wheezing. Examination of the left-upperfield reveals wheezing. Examination of the right- lower field reveals wheezing. Examination of the left-lower field reveals wheezing. Wheezing present. No decreased breath sounds, rhonchi or rales. Musculoskeletal: Cervical back: Full passive range of motion without pain, normal range of motion and neck supple. Lymphadenopathy: Cervical: No cervical adenopathy. Skin: General: Skin is warm and dry. Neurological: Mental Status: She is alert and oriented to person, place, and time. Gait: Gait normal. Psychiatric: Behavior: Behavior is cooperative. Vitals: 11/28/21 0828 BP: 132/85 BP Location: Left arm Patient Position: Sitting Pulse: 93 Resp: 14 Temp: 36.4 ??C (97.5 ??F) TempSrc: Oral SpO2: 99% Weight: 97.5 kg (215 lb) Height: 167.6 cm (5' 6 ) No exam data present No past medical history on file. Current Outpatient Medications: ??? albuterol 2.5 mg /3 mL (0.083 %) nebulizer solution, USE 1 VIAL IN NEBULIZER EVERY 4 TO 6 HOURSAS NEEDED, Disp: , Rfl: ??? albuterol HFA (PROVENTIL HFA,VENTOLIN HFA,PROAIR HFA) 90 mcg/actuation inhaler, Inhale 2 puffs,Disp: , Rfl: ??? armodafiniL (NUVIGIL) 50 mg tablet, Take 50 mg by mouth daily, Disp: , Rfl: ??? benazepriL (LOTENSIN) 10 mg tablet, Take 10 mg by mouth daily, Disp: , Rfl: ??? predniSONE (DELTASONE) 20 mg tablet, Take 2 tablets (40 mg) by mouth daily for 5 days, Disp: 10tablet, Rfl: 0 Allergies Allergen Reactions ??? Sumatriptan Anaphylaxis ??? Sulfa (Sulfonamide Antibiotics) Swelling ??? Penicillins Unknown ??? Ciprofloxacin Other (See comments) Social History Socioeconomic History ??? Marital status: Tobacco Use ??? Smoking status: Never Smoker ??? Smokeless tobacco: Never Used Vaping Use ??? Vaping Use: Never used Assessment/Plan Diagnoses and all orders for this visit: Asthma with acute exacerbation, unspecified asthma severity, unspecified whether persistent (Primary) - XR Chest Pa Lateral 2 Views; Future - predniSONE (DELTASONE) 20 mg tablet; Take 2 tablets (40 mg) by mouth daily for 5 days IMPRESSION: No acute cardiopulmonary abnormality. -pt notified Call your PCP tomorrow morning to schedule appt for follow up. Discussed referral to technical recruiter, pt states she will talk to PCP first. No results found for this or any previous visit (from the past 4 hour(s)). Patient Education: Seek care immediately if: ?? You have severe shortness of breath. ?? Your lips or nails turn blue or morris. ?? The skin around your neck and ribs pulls in with each breath. ?? You have shortness of breath, even after you take your short-term medicine as directed. ?? Your peak flow numbers are in the red zone of your AAP. Contact your healthcare provider if: ?? You run out of medicine before your next refill is due. ?? Your symptoms get worse. ?? You need to take more medicine than usual to control your symptoms. ?? You have questions or concerns about your condition or care. Treatment for asthma will depend on how severe your asthma is. Medicine may decrease inflammation, open airways, and make it easier to breathe. Medicines may be inhaled, taken as a pill, or injected.Short-term medicines relieve your symptoms quickly. Long-term medicines are used to prevent future attacks. You may also need medicine to help control your allergies. Manage and prevent future asthma attacks: ?? Follow your asthma action plan. This is a written plan that you and your healthcare provider create. It explains which medicine you need and when to change doses if necessary. It also explains howyou can monitor symptoms and use a peak flow meter. The meter measures how well your lungs are working. ?? Manage other health conditions , such as allergies, acid reflux, and sleep apnea. ?? Identify and avoid triggers. These may include pets, dust mites, mold, and cockroaches. ?? Do not smoke or be around others who smoke. Nicotine and other chemicals in cigarettes and cigars can cause lung damage. Ask your healthcare provider for information if you currently smoke and need help to quit. E-cigarettes or smokeless tobacco still contain nicotine. Talk to your healthcare provider before you use these products. ?? Ask about the flu vaccine. The flu can make your asthma worse. You may need a yearly flu shot. Disposition ??? Treatment plan including expectations, follow up, and return precautions discussed with patient/parent, verbalizes understanding. ??? Medication dosage, use, and potential adverse reactions discussed with patient/parent. ??? Advised to follow up with PCP if symptoms do not resolve as expected or sooner if condition worsens. ??? Signs/symptoms warranting ER evaluation reviewed. ??? Patient and/or guardian was given an opportunity to ask questions, questions answered. Sam Seth NP ARTIST documented in this encounter Plan of Treatment Not on file documented as of this encounter Results * XR Chest Pa Lateral 2 Views (11/28/2021 9:12 AM FX ARTIST) Anatomical Region Laterality Modality Body, Chest N/A Digital Radiogra phy 11/28/2021 10:1 6 AM FX ARTIST Narrative 11/28/2021 10:17 AM FX ARTIST EXAM DESCRIPTION: ?? XR CHEST PA LATERAL [...] D: ??11/28/2021 10:17 AM T: Report ID: [id number] Reading Location: ??[id number] Procedure Note Alexi Carlos MD - 11/28/2021 [...] signed by Alexi HENDERSON T: Report ID: [id number] Reading Location: [id number] Sam Seth NP IMG XR PROCEDURES Final Result documented in this encounter Visit Diagnoses Diagnosis Asthma with acute exacerbation, unspecified asthma severity, unspecified whether persistent- Primary Asthma with acute exacerbation, unspecified asthma severity, unspecified whether persistent documented in this encounter Discontinued Medications Medication Sig Discontinue Reason Start Date End Da te predniSONE (DELTASONE) 50 mg tablet TAKE 1 TABLET BY MOUTH ONCE DAILY FOR 5 DAYS Therapy completed 11/15/2021 11/28/2021 documented as of this encounter Historical Medications * This list may reflect changes made after this encounter. benazepriL (LOTENSIN) 10 mg tablet Take 10 mg by mouth daily armodafiniL (NUVIGIL) 50 mg tablet Take 50 mg by mouth daily 10/15/2021 albuterol HFA (PROVENTIL HFA,VENTOLIN HFA,PROAIR HFA) 90 mcg/actuation inhaler Inhale 2 puffs 11/12/2021 albuterol 2.5 mg /3 mL (0.083 %) nebulizer solution USE 1 VIAL IN NEBULIZER EVERY 4 TO 6 HOURS NEEDED 11/14/2021 predniSONE (DELTASONE) 50 mg tablet TAKE 1 TABLET BY MOUTH ONCE DAILY FOR 5 DAYS 11/15/2021 2 added in this encounter Care Teams Neuropsychologist Relationship Specialty Start Date End Date Ruma Laird MD PCP - General Family Medicine 09/28/17 documented as of this encounter
--- OUTSIDE RECORDS SUMMARY | 2024-10-11 21:07 | XMS_ITS | Encounter Summary ---
Author Organization [facility] Address [address] [facility] [address] [place] [address] Care Team Providers Care Veterinary Parasitologist Name Role Phone Ruma Laird MD Primary Care Provider + Encounter Details Date Type Department Care Team (Late st Contact Info) Description 04/14/2021 Orders Only [facility] Cardiology [address] [facility] [address] [place] [address] ProviderMatthew MD [address] [place] [id number] Social History Tobacco Use Types Packs/Day Years Used Date Smoking Tobacco: Never Assessed Comments Unknown Sex and Gender Information Value Date Recorded Sex Assigned at Not on file Legal Sex Female 8:15 PM SCALER PACKER Gender Identity Not on file Sexual Orientation Not on file documented as of this encounter Plan of Treatment Not on file documented as of this encounter Procedures Procedure Name Priority Date/Time Associated Diagnosis Comments CARDIOLOGY DOCUMENT SCAN Routine 04/14/2021 documented in this encounter Results * SCAN - CARDIOLOGY (04/14/2021) Anatomical Region Laterality Modality Other Historical Provider [facility] CARDIAC SERVICES KENYA PATEL Final Result documented in this encounter Visit Diagnoses Not on filedocumented in this encounter Care Teams Veterinary Parasitologist Relationship Specialty Start Date End Date Ruma Laird MD PCP - General Family Medicine 09/28/17 documented as of this encounter
--- OUTSIDE RECORDS SUMMARY | 2024-10-11 21:07 | XMS_ITS | Encounter Summary ---
Author Organization [facility] Address [address] [facility] [address] [place] [address] Care Team Providers Care Clearance Rep Name Role Phone Ruma Laird MD Primary Care Provider + Reason for Visit * Cardiology (Routine) - Closed Specialty Diagnoses / Procedures Referred By Contac t Referred To Contact Diagnoses Palpitations Procedures Event Monitor, 30 Day Event Charline Copeland PA Phone: tel: fax: Referral ID Status Reason Start Date Expiration Date Visits Re quested Visits Authorized [id number] Closed 09/22/2017 03/21/2018 1 1 Encounter Details Date Type Department Care Team (Late st Contact Info) Description 09/28/2017 2:00 PM VAT OVERHAULER Ancillary Procedure [facility] Cardiology [address] [place] [address] Palpitations Social History Tobacco Use Types Packs/Day Years Used Date Smoking Tobacco: Never Assessed Comments Unknown Sex and Gender Information Value Date Recorded Sex Assigned at Not on file Legal Sex Female 8:15 PM VAT OVERHAULER Gender Identity Not on file Sexual Orientation Not on file documented as of this encounter Procedure Notes * Bebo Khan MD - 09/28/2017 12:00 AM CST Indication Palpitations. Report Period From 09/28 through 10/11/2017. There was a total of 35 transmissions. Baseline transmission shows sinus rhythm with a heart rate of 90 beats per minute. The high average heart rate was 120 beats per minute with low average heart rate of 80 beats per minute. Thirty-two mainly triggered events were posted including symptoms of rapid heart rate/palpitations/flutter, lightheadedness/dizziness, other. No pauses of greater than 3 seconds. In reviewing the mainly triggered events with symptoms of fluttering as well as dizziness and lightheadedness, generally speaking, these do correlate to sinus rhythm or sinus tachycardia with frequent PACs. There is also occasional PVCs noted. There is 1 episode of atrial of a 4 beat atrial run as well as an atrial couplet. Conclusion 1. Underlying normal sinus rhythm. 2. Elevated high average heart rate of 120 beats per minute. 3. Multiple mainly triggered events as detailed above. All correlate to sinus rhythm or sinus tachycardia with PACs, PVCs, atrial couplets and 2 episodes of brief atrial runs. OVERHAULER documented in this encounter Plan of Treatment Pending Results Name Type Priority Associated Diagnoses Date /Time Event Monitor, 30 Day Event Cardiac Services Routine Palpitations 09/28/2017 3:48 PM VAT OVERHAULER documented as of this encounter Visit Diagnoses Diagnosis Palpitations documented in this encounter Care Teams Clearance Rep Relationship Specialty Start Date End Date Ruma Laird MD PCP - General Family Medicine 09/28/17 documented as of this encounter
--- OUTSIDE RECORDS SUMMARY | 2024-10-11 21:07 | XMS_ITS | Encounter Summary ---
Author Organization [facility] Address [address] [facility] [address] [place] [address] Care Team Providers Care Mercury Washer Name Role Phone Ruma Laird MD Primary Care Provider + Encounter Details Date Type Department Care Team (Late st Contact Info) Description 10/02/2017 Telephone [facility] [address] [phone] Fan Rodriguez MD [address] [facility] [address] [facility] [address] [place] [address] Social History Tobacco Use Types Packs/Day Years Used Date Smoking Tobacco: Never Assessed Comments Unknown Sex and Gender Information Value Date Recorded Sex Assigned at Not on file 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 She said she tried to call [employer] and could not get through. She wore the patch one day and the monitor told her to change the patch. The same thing happened the second day. Since she only has 4 patches, she is concerned. Checked with tanvi Dodson the number on the back of the monitor to call [employer]. They can send more patches and check tos ee if the monitor is functioning appropriately. ECTOR WATCH ASSEMBLY documented in this encounter Plan of Treatment Not on file documented as of this encounter Visit Diagnoses Not on filedocumented in this encounter Care Teams Mercury Washer Relationship Specialty Start Date End Date Ruma Laird MD PCP - General Family Medicine 09/28/17 documented as of this encounter
== END 2024-10-02 12:56 | disposition home or self-care (01) ==
PROVIDERS: Emergency Provider Family Medicine; PCP Family Medicine
DX: J45.909 Unspecified asthma, uncomplicated (principal); I10 Essential (primary) hypertension
CPT/HCPCS: 36415; 71046; 80053; 83880; 85025; 85380; 85610; 93005; 99283

== ENCOUNTER 2024-10-10 11:31 | Outpatient (CLI) | payer OTHER, SELFPAY ==
[2024-10-10 19:35] LABS: Influenza A QL RT-PCR Positive (Negative); Influenza B QL RT-PCR Negative (Negative); RSV RNA, RT-PCR Positive (Negative); SARS-CoV-2 RNA PCR Negative (Negative)
== END 2024-10-10 11:32 | disposition home or self-care (01) ==
LOC: ANHGOSHLAB 11:35
PROVIDERS: PCP Family Medicine; Visit Provider Student in an Organized Health Care Education/Training Program
DX: Z11.52 Encounter for screening for COVID-19 (principal); Z11.59 Encounter for screening for other viral diseases; Z29.11 Encounter for prophylactic immunotherapy for respiratory syncytial virus (RSV)
CPT/HCPCS: 87637